=== PATIENT | female | born 1950 | race American Indian/Alaskan Native ===

== ENCOUNTER 2018-10-25 17:06 | Emergency (ER) | payer MEDICARE, MEDICAID ==
[2018-10-25 17:51] VITALS: BP 151/84
[2018-10-25] MEDS ORDERED: Ketorolac 30 MG/ML SDV IM ONE (18:54)
[2018-10-25] MEDS ORDERED: Phenazopyridine 95 MG Tab PO ONE (18:54)
[2018-10-25] MEDS ORDERED: Sulfamethoxazole/Trimethoprim 800-160 MG Tab PO ONE (18:54)
--- NOTE | 2018-10-25 19:00 | EDM.PDOC ---
ED HPI GENERAL MEDICAL PROBLEM - General Chief Complaint: Fever Stated Complaint: fever chills aches Time Seen by Provider: 10/25/18 18:55 Source of Information: Reports: Patient History Limitations: Reports: No Limitations - History of Present Illness INITIAL COMMENTS - FREE TEXT/NARRATIVE: c/o 3 days h/o suprapubic discomfort and exac back pain. not getting better. tried hydro but '0' Generalized Pain Score (Numeric/FACES): 8 - Related Data Allergies Allergy/AdvReac Type Severity Reaction Status Date / Time codeine phosphate Allergy rangel Verified 10/25/18 17:51 [From Tylenol-Codeine #3] stomach tramadol Allergy Hyperactivi Verified 10/25/18 17:51 ty Home Meds: Home Meds Cyclobenzaprine [Flexeril] 10 mg PO BEDTIME PRN 11/14/13 [History] Multivitamin [Multi Vitamin Daily] 1 tab PO DAILY 11/14/13 [History] Omeprazole 20 mg PO DAILY 11/14/13 [History] PHENobarbital 129.6 mg PO BEDTIME 11/14/13 [History] Simvastatin [Zocor] 40 mg PO BEDTIME 11/14/13 [History] Aspirin 325 mg PO DAILY 03/05/15 [History] Acetaminophen/HYDROcodone [Churdan 325-5 MG] 1 tab PO ASDIRECTED PRN 03/02/18 [ History] Albuterol Sulfate [Proair Hfa] 2 inh INH ASDIRECTED PRN 03/02/18 [History] Past Medical History HEENT History: Reports: Impaired Vision Other HEENT History: wear glasses Cardiovascular History: Reports: High Cholesterol Respiratory History: Reports: COPD Gastrointestinal History: Reports: GERD Genitourinary History: Reports: None [employer] History: Reports: Musculoskeletal History: Reports: Osteoarthritis Neurological History: Reports: Seizure Psychiatric History: Reports: None Endocrine/Metabolic History: Reports: None Hematologic History: Reports: None Immunologic History: Reports: None Oncologic (Cancer) History: Reports: None Dermatologic History: Reports: None - Infectious Disease History Infectious Disease History: Reports: Chicken Pox, Measles, Mumps - Past Surgical History Head Surgeries/Procedures: Reports: None Social & Family History - Family History Family Medical History: Noncontributory - Tobacco Use Smoking Status *Q: Current Every Day Smoker Years of Tobacco use: 51 Packs/Tins Daily: 0.5 Second Hand Smoke Exposure: No - Caffeine Use Caffeine Use: Reports: Coffee - Recreational Drug Use Recreational Drug Use: No - Living Situation & Occupation Living situation: Reports: with Family Occupation: Retired ED ROS GENERAL - Review of Systems Review Of Systems: ROS reveals no pertinent complaints other than HPI. ED EXAM, GENERAL - Physical Exam Exam: See Below Exam Limited By: No Limitations General Appearance: Alert, WD/WN, Mild Distress, Other (discomfort) Ears: Hearing Grossly Normal Throat/Mouth: Normal Voice, No Airway Compromise Head: Atraumatic Neck: Non-Tender, Full Range of Motion Respiratory/Chest: No Respiratory Distress Cardiovascular: Regular Rate, Rhythm GI/Abdominal: Soft, Other (suprapubic discomfort) Back Exam: Muscle Spasm, Paraspinal Tenderness, Other (right L2-3-4 without radiculitis, gait limited to discomfort) Neurological: Alert, Oriented, Normal Cognition, No Motor/Sensory Deficits Psychiatric: Flat Affect Skin Exam: Warm, Dry, Normal Color Lymphatic: No Adenopathy Course - Vital Signs Last Recorded V/S: Last Vital Signs Temp 37.7 C 10/25/18 17:46 Pulse 108 H 10/25/18 17:46 Resp 16 10/25/18 17:46 BP 151/84 H 10/25/18 17:46 Pulse Ox 94 L 10/25/18 17:46 - Orders/Labs/Meds Orders: Active Orders 24 hr Category Date Time Status CULTURE URINE [RM] Urgent Lab 10/25/18 17:44 Received Ketorolac [Toradol] Med 10/25/18 18:54 Once 30 mg IM ONETIME ONE Orphenadrine [Norflex] Med 10/25/18 19:00 Ordered 60 mg IM Q12H Phenazopyridine [Urinary Pain Relief] Med 10/25/18 18:54 Once 95 mg PO ONETIME ONE Sulfamethoxazole/Trimethoprim [Septra DS] Med 10/25/18 18:54 Once 1 tab PO ONETIME ONE Labs: Laboratory Tests 10/25/18 Range/Units 17:44 Urine Color Yellow (YELLOW) Urine Appearance Clear (CLEAR) Urine pH 6.5 (5.0-9.0) Ur Specific [place] 1.015 (1.005-1.030) Urine Protein Negative (NEGATIVE) Urine Glucose (UA) Negative (NEGATIVE) Urine Ketones Trace H (NEGATIVE) Urine Occult Blood Trace-intact H (NEGATIVE) Urine Nitrite Negative (NEGATIVE) Urine Bilirubin Negative (NEGATIVE) Urine Urobilinogen 1.0 (0.2-1.0) mg/dL Ur Leukocyte Esterase Small H (NEGATIVE) Urine RBC 0-5 /HPF Urine WBC 0-5 (0-5/HPF) /HPF Ur Epithelial Cells Rare (NOT SEEN) /HPF Urine Bacteria Rare (0-FEW/HPF) /HPF Urinalysis Comment See note - Re-Assessments/Exams Free Text/Narrative Re-Assessment/Exam: 10/25/18 18:58 results discussed with pt. Departure - Departure Time of Disposition: 18:58 Disposition: Home, Self-Care 01 Condition: Good Clinical Impression: Spasm of lumbar paraspinous muscle UTI (urinary tract infection) Qualifiers: Urinary tract infection type: acute cystitis Hematuria presence: with hematuria Qualified Code(s): N30.01 - Acute cystitis with hematuria - Discharge Information Instructions: Urinary Tract Infection, Adult, [id number] Additional Instructions: 1) rest 2) avoid bending lifting straining next 48 hours 3) drink lots of liquids 4) follow up at clinic 5) try ice or heat to sore areas 6) continue with muscle relaxants rx given; bactrim DS bid x 20 pyridium 100mg tid prn x 12 - My Orders Last 24 Hours: My Active Orders 10/25/18 18:54 Ketorolac [Toradol] 30 mg IM ONETIME ONE Phenazopyridine [Urinary Pain Relief] 95 mg PO ONETIME ONE Sulfamethoxazole/Trimethoprim [Septra DS] 1 tab PO ONETIME ONE 10/25/18 19:00 Orphenadrine [Norflex] 60 mg IM Q12H - Assessment/Plan Last 24 Hours: My Active Orders 10/25/18 18:54 Ketorolac [Toradol] 30 mg IM ONETIME ONE Phenazopyridine [Urinary Pain Relief] 95 mg PO ONETIME ONE Sulfamethoxazole/Trimethoprim [Septra DS] 1 tab PO ONETIME ONE 10/25/18 19:00 Orphenadrine [Norflex] 60 mg IM Q12H
== END 2018-10-25 19:10 | disposition home or self-care (01) ==
LOC: DL.ED 17:06
DX: N30.01 Acute cystitis with hematuria (principal); M62.830 Muscle spasm of back; J44.9 Chronic obstructive pulmonary disease, unspecified; E78.00 Pure hypercholesterolemia, unspecified; F17.210 Nicotine dependence, cigarettes, uncomplicated; K21.9 Gastro-esophageal reflux disease without esophagitis; Z79.82 Long term (current) use of aspirin; Z79.899 Other long term (current) drug therapy; Z88.6 Allergy status to analgesic agent; Z88.5 Allergy status to narcotic agent
CPT/HCPCS: 81001; 87086; 87088; 87186; 96372; 99283; A9270; J1885; J2360

== ENCOUNTER 2021-05-24 08:24 | Day surgery (SDC) | payer MEDICARE, MEDICAID ==
[2021-05-24] MEDS ORDERED: Sodium Chloride 0.9% 10 ML Syringe IV ONE (08:25)
[2021-05-24] MEDS ORDERED: Dexamethasone 4 MG/ML SDV IV ONE (08:25)
[2021-05-24] MEDS ORDERED: Midazolam 1 MG/ML 2 ML SDV IV ONE (08:25)
[2021-05-24] MEDS ORDERED: Povidone-Iodine 5% Sterile Ophth Soln 30 ML Bottle EYELF ONE ×2 (08:30→09:41)
[2021-05-24] MEDS ORDERED: Moxifloxacin 0.5% Ophth Soln 3 ML Bottle EYELF ONE (08:30)
[2021-05-24] MEDS ORDERED: Acetaminophen/Codeine 300-30 MG Tab PO PRN (08:30)
[2021-05-24] MEDS ORDERED: Ondansetron 4 MG/2 ML SDV IVPUSH PRN (08:30)
[2021-05-24] MEDS ORDERED: Proparacaine 0.5% Ophth Soln 15 ML Bottle EYELF ONE (08:30)
[2021-05-24] MEDS ORDERED: Phenylephrine 10% Ophth Soln 5 ML Bot EYELF ONE (08:30)
[2021-05-24] MEDS ORDERED: Acetaminophen 325 MG Tab PO PRN (08:30)
[2021-05-24] MEDS ORDERED: Timolol Maleate 0.5% Ophth Soln 5 ML Bottle EYELF ONE (08:30)
[2021-05-24] MEDS ORDERED: Cataract Ophth Solution EYELF ONE (08:30)
[2021-05-24] MEDS ORDERED: Tropicamide 1% Ophth Soln 15 ML Bottle EYELF ONE (08:30)
[2021-05-24] MEDS ORDERED: Tobramycin 0.3% Ophth Drops 5 ML Bottle EYELF SCH (08:30)
[2021-05-24] MEDS ORDERED: Tetracaine HCl/PF 0.5% 4 ML Bottle EYELF ONE (09:41)
[2021-05-24] MEDS ORDERED: Dexamethasone/Neomycin/Polymyxin B Ophth Oint 3.5 GM Tube EYELF ONE (09:42)
[2021-05-24] MEDS ORDERED: Apraclonidine 0.5% Ophth Soln 5 ML Bot EYELF ONE (09:42)
[2021-05-24] MEDS ORDERED: Diclofenac Sodium 0.1% Ophth Soln 5 ML Bottle EYELF ONE (09:42)
[2021-05-24] MEDS ORDERED: Chondroitin Sulfate/Hyaluronate Sodium Ophth Inj 0.75 ML Syringe EYELF ONE (09:43)
[2021-05-24] MEDS ORDERED: Lidocaine 1% 30 ML SDV ONE (09:43)
[2021-05-24] MEDS ORDERED: Vancomycin 500 MG SDV EYELF ONE (09:43)
[2021-05-24] MEDS ORDERED: Balanced Salt Solution Ophth Irrig 500 ML Bottle IOCULAR ONE (09:43)
[2021-05-24] MEDS ORDERED: Chondroitin Sulfate/Hyaluronate Sodium Ophth Inj 0.5 ML Syringe IOCULAR ONE (09:44)
[2021-05-24] MEDS ORDERED: Acetylcholine 20 MG/2 ML Intraocular Inj Kit EYELF ONE (09:44)
[2021-05-24] MEDS ORDERED: Dexamethasone 4 MG/ML SDV IOCULAR ONE (09:47)
[2021-05-24 11:20] VITALS: BP 138/79; PULSE 72
== END 2021-05-24 10:55 | disposition home or self-care (01) ==
LOC: DL.SDS 08:24
PROVIDERS: ATTEND Ophthalmology
DX: E11.39 Type 2 diabetes mellitus with other diabetic ophthalmic complication (principal); E11.36 Type 2 diabetes mellitus with diabetic cataract; H40.1121 Primary open-angle glaucoma, left eye, mild stage; H25.812 Combined forms of age-related cataract, left eye; K21.9 Gastro-esophageal reflux disease without esophagitis; E78.5 Hyperlipidemia, unspecified; F17.210 Nicotine dependence, cigarettes, uncomplicated; E66.9 Obesity, unspecified; J44.9 Chronic obstructive pulmonary disease, unspecified; Z88.8 Allergy status to other drugs, medicaments and biological substances; Z90.49 Acquired absence of other specified parts of digestive tract; Z98.890 Other specified postprocedural states; Z79.899 Other long term (current) drug therapy; Z68.32 Body mass index [BMI] 32.0-32.9, adult; Z88.5 Allergy status to narcotic agent
CPT/HCPCS: 00142; 66991; A9270; C1783; J1100; J2250; J3370; V2632

== ENCOUNTER 2021-05-31 08:08 | Day surgery (SDC) | payer MEDICARE, MEDICAID ==
[~2021-05-31 08:08] MED LIST: Acetaminophen 325 MG Tab PO PRN; Acetaminophen/Codeine 300-30 MG Tab PO PRN; Cataract Ophth Solution EYERT ONE; Moxifloxacin 0.5% Ophth Soln 3 ML Bottle EYERT ONE; Ondansetron 4 MG/2 ML SDV IVPUSH PRN; Phenylephrine 10% Ophth Soln 5 ML Bot EYERT ONE; Povidone-Iodine 5% Sterile Ophth Soln 30 ML Bottle EYERT ONE; Proparacaine 0.5% Ophth Soln 15 ML Bottle EYERT ONE; Timolol Maleate 0.5% Ophth Soln 5 ML Bottle EYERT ONE; Tropicamide 1% Ophth Soln 15 ML Bottle EYERT ONE
[2021-05-31] MEDS ORDERED: Sodium Chloride 0.9% 10 ML Syringe IV ONE (08:09)
[2021-05-31] MEDS ORDERED: Dexamethasone 4 MG/ML SDV IV ONE (08:09)
[2021-05-31] MEDS ORDERED: Midazolam 1 MG/ML 2 ML SDV IV ONE (08:09)
[2021-05-31] MEDS ORDERED: Lidocaine 1% 30 ML SDV ONE (09:07)
[2021-05-31] MEDS ORDERED: Tetracaine HCl/PF 0.5% 4 ML Bottle EYERT ONE (09:07)
[2021-05-31] MEDS ORDERED: Diclofenac Sodium 0.1% Ophth Soln 5 ML Bottle EYERT ONE (09:08)
[2021-05-31] MEDS ORDERED: Apraclonidine 0.5% Ophth Soln 5 ML Bot EYERT ONE (09:08)
[2021-05-31] MEDS ORDERED: Povidone-Iodine 5% Sterile Ophth Soln 30 ML Bottle EYERT ONE (09:08)
[2021-05-31] MEDS ORDERED: Vancomycin 500 MG SDV EYERT ONE (09:09)
[2021-05-31] MEDS ORDERED: Dexamethasone/Neomycin/Polymyxin B Ophth Oint 3.5 GM Tube EYERT ONE (09:09)
[2021-05-31] MEDS ORDERED: Balanced Salt Solution Ophth Irrig 500 ML Bottle IOCULAR ONE (09:09)
[2021-05-31] MEDS ORDERED: Acetylcholine 20 MG/2 ML Intraocular Inj Kit EYERT ONE (09:10)
[2021-05-31] MEDS ORDERED: Chondroitin Sulfate/Hyaluronate Sodium Ophth Inj 0.75 ML Syringe EYERT ONE (09:10)
[2021-05-31] MEDS ORDERED: Chondroitin Sulfate/Hyaluronate Sodium Ophth Inj 0.5 ML Syringe IOCULAR ONE (09:10)
[2021-05-31] MEDS ORDERED: Dexamethasone 4 MG/ML SDV IOCULAR ONE (09:13)
[2021-05-31 10:33] VITALS: BP 106/62; PULSE 76
== END 2021-05-31 10:25 | disposition home or self-care (01) ==
LOC: DL.SDS 08:08
PROVIDERS: ATTEND Ophthalmology
DX: E11.39 Type 2 diabetes mellitus with other diabetic ophthalmic complication (principal); E11.36 Type 2 diabetes mellitus with diabetic cataract; H25.811 Combined forms of age-related cataract, right eye; H40.1111 Primary open-angle glaucoma, right eye, mild stage; J44.9 Chronic obstructive pulmonary disease, unspecified; K21.9 Gastro-esophageal reflux disease without esophagitis; E78.5 Hyperlipidemia, unspecified; F17.210 Nicotine dependence, cigarettes, uncomplicated; Z88.8 Allergy status to other drugs, medicaments and biological substances; Z88.5 Allergy status to narcotic agent; Z98.890 Other specified postprocedural states; Z90.49 Acquired absence of other specified parts of digestive tract; Z79.899 Other long term (current) drug therapy; Z79.84 Long term (current) use of oral hypoglycemic drugs
CPT/HCPCS: 00142; A9270-GY; C1783; J1100; J2250; J3370; V2632

== ENCOUNTER 2023-06-02 20:46 | Emergency (ER) | payer MEDICAID, MEDICARE ==
[2023-06-02] MEDS ORDERED: Sodium Chloride 0.9% 10 ML Syringe FLUSH PRN ×2 (20:55→21:13)
[2023-06-02] MEDS ORDERED: Albuterol/Ipratropium 3.0-0.5 MG/3 ML Neb Soln NEB ONE (21:13)
[2023-06-02] MEDS ORDERED: Acetaminophen 500 MG Tab PO ONE (21:14)
[2023-06-02] MEDS ORDERED: predniSONE 20 MG Tab PO ONE (21:37)
[2023-06-02 21:42] LABS: BASOPHILS PERCENT AUTO 0.1 % (0.0-1.0); EOSINOPHILS PERCENT AUTO 1.5 % (1.0-3.0); HEMATOCRIT 40.7 % (37.0-47.0); HEMOGLOBIN 13.6 g/dL (12.0-16.0); LYMPHOCYTES PERCENT AUTO 23.2 % (20.5-50.1); MEAN CORPUSCULAR HEMOGLOBIN 32.7 pg (27.0-34.0); MEAN CORPUSCULAR HGB CONC 33.4 g/dL (33.0-35.0); MEAN CORPUSCULAR VOLUME 97.8 fL (80-100); MONOCYTES PERCENT AUTO 8.1 % (2-8); NEUTROPHILS PERCENT AUTO 67.1 % (42.2-75.2); PLATELET COUNT,PLT 202 10^3/uL (150-450); RED BLOOD CELL COUNT 4.16 10^6/uL (4.2-5.4); WHITE BLOOD CELL COUNT,WBC 9.8 10^3/uL (5.0-10.0)
[2023-06-02 22:01] LABS: ALBUMIN 3.3 g/dL (3.4-5.0); BILIRUBIN TOTAL 0.2 mg/dL (0.2-1.0); BUN/CREATININE RATIO 20.7 (No establ ref range); CALCIUM 8.6 mg/dL (8.5-10.1); CREATININE 0.92 mg/dL (0.55-1.02); EST CRCL DRUG DOSING (CG) 50.47 mL/min; PROTEIN TOTAL,TP 7.2 g/dL (6.4-8.2)
[2023-06-02 22:08] LABS: A/G RATIO 0.85
[2023-06-02 22:20] LABS: CORONAVIRUS COVID-19 NAA NEGATIVE (NEGATIVE); INFLUENZA A NAA NEGATIVE (NEGATIVE); INFLUENZA B NAA NEGATIVE (NEGATIVE); RESPIRATORY SYNCYTIAL VIR NAA NEGATIVE (NEGATIVE)
[2023-06-02] MEDS ORDERED: Azithromycin 250 MG Tab PO ONE (22:31)
[2023-06-02] MEDS ORDERED: Take Home: Albuterol/Ipratropium 3.0-0.5 MG/3 ML Neb Soln, 5 Neb Pack NEB ONE (22:45)
[2023-06-02 22:53] VITALS: BP 114/55; PULSE 90
== END 2023-06-02 23:06 | disposition home or self-care (01) ==
LOC: DL.ED 20:46
DX: J44.1 Chronic obstructive pulmonary disease with (acute) exacerbation (principal); M62.838 Other muscle spasm; E78.00 Pure hypercholesterolemia, unspecified; K21.9 Gastro-esophageal reflux disease without esophagitis; E11.9 Type 2 diabetes mellitus without complications; F17.210 Nicotine dependence, cigarettes, uncomplicated; Z90.49 Acquired absence of other specified parts of digestive tract; Z79.84 Long term (current) use of oral hypoglycemic drugs; Z79.899 Other long term (current) drug therapy; Z88.5 Allergy status to narcotic agent; Z88.8 Allergy status to other drugs, medicaments and biological substances
CPT/HCPCS: 0241U; 36415; 71046; 80053; 83880; 85025; 93005; 93010; 94640; 99284; 99285; A9270; J7512; J3490; J7620-GY

== ENCOUNTER 2024-10-29 17:18 | Inpatient (IN) | payer MEDICARE ==
[2024-10-29] MEDS: Ondansetron 4 MG/2 ML SDV IVPUSH ONE (17:57)
[2024-10-29 20:20] LABS: BASOPHILS PERCENT AUTO 0.2 % (0.0-1.0); EOSINOPHILS PERCENT AUTO 0.7 % (1.0-3.0); LYMPHOCYTES PERCENT AUTO 16.4 % (20.5-50.1); MONOCYTES PERCENT AUTO 7.2 % (2-8); NEUTROPHILS PERCENT AUTO 75.5 % (42.2-75.2); PLATELET COUNT,PLT 224 10^3/uL (150-450); RED BLOOD CELL COUNT 4.75 10^6/uL (4.2-5.4); WHITE BLOOD CELL COUNT,WBC 15.1 10^3/uL (5.0-10.0)
[2024-10-29] MEDS ORDERED: Ondansetron 4 MG/2 ML SDV IVPUSH PRN (20:42)
[2024-10-29] MEDS ORDERED: Magnesium Hydroxide 400 MG/5 ML Susp 30 ML Cup PO PRN (20:42)
[2024-10-29 20:49] LABS: A/G RATIO 0.9; ALANINE AMINOTRANSFERASE,ALT 23.0 U/L (14-59); ASPARTATE AMNIOTRANSFERASE,AST 16.0 U/L (15-37); BILIRUBIN TOTAL 0.5 mg/dL (0.2-1.0); BLOOD UREA NITROGEN,BUN 14.0 mg/dL (7-18); CARBON DIOXIDE,CO2 28.0 mmol/L (21-32); CHLORIDE,CL 107.0 mmol/L (98-107); CREATININE 1.07 mg/dL (0.55-1.02); EST CRCL DRUG DOSING (CG) 42.76 mL/min; ESTIMATED GFR 55.0 mL/min (>=60); GLUCOSE RANDOM 105.0 mg/dL (70-99); POTASSIUM,K 4.5 mmol/L (3.5-5.1); PROTEIN TOTAL,TP 7.8 g/dL (6.4-8.2); SODIUM,NA 144.0 mmol/L (136-145); T4 FREE 1.0 ng/dL (0.76-1.46); TSH ULTRASENSITIVE 2.05 uIU/mL (0.36-3.74)
[2024-10-29] MEDS: Acetaminophen/HYDROcodone 325-5 MG Tab PO PRN (21:42)
[2024-10-30 06:16] LABS: APPEARANCE,URINE CLOUDY (CLEAR); GLUCOSE,URINE NEGATIVE (NEGATIVE); OCCULT BLOOD,URINE NEGATIVE (NEGATIVE)
[2024-10-30 06:21] LABS: BASOPHILS PERCENT AUTO 0.1 % (0.0-1.0); EOSINOPHILS PERCENT AUTO 2.3 % (1.0-3.0); LYMPHOCYTES PERCENT AUTO 28.2 % (20.5-50.1); MONOCYTES PERCENT AUTO 9.0 % (2-8); NEUTROPHILS PERCENT AUTO 60.4 % (42.2-75.2); PLATELET COUNT,PLT 196 10^3/uL (150-450); RED BLOOD CELL COUNT 4.38 10^6/uL (4.2-5.4); WHITE BLOOD CELL COUNT,WBC 8.1 10^3/uL (5.0-10.0)
[2024-10-30 07:00] LABS: A/G RATIO 1.0; ALANINE AMINOTRANSFERASE,ALT 21.0 U/L (14-59); ASPARTATE AMNIOTRANSFERASE,AST 12.0 U/L (15-37); BILIRUBIN TOTAL 0.5 mg/dL (0.2-1.0); BLOOD UREA NITROGEN,BUN 15.0 mg/dL (7-18); CARBON DIOXIDE,CO2 31.0 mmol/L (21-32); CHLORIDE,CL 108.0 mmol/L (98-107); CREATININE 1.0 mg/dL (0.55-1.02); EST CRCL DRUG DOSING (CG) 45.76 mL/min; GLUCOSE RANDOM 103.0 mg/dL (70-99); POTASSIUM,K 4.5 mmol/L (3.5-5.1); PROTEIN TOTAL,TP 6.8 g/dL (6.4-8.2); SODIUM,NA 146.0 mmol/L (136-145)
[2024-10-30 07:01] LABS: ESTIMATED GFR 60.0 mL/min (>=60)
[2024-10-30 08:46] LABS: EPITHELIAL CELLS,URINE MODERATE /HPF (NOT SEEN)
[2024-10-30] MEDS: Non-Formulary Medication 1 Each (Methocarbamol 750 MG Tablet) PO SCH (14:49)
[2024-10-30] MEDS ORDERED: Non-Formulary Medication 1 Each (Methocarbamol 750 MG Tablet) PO SCH (17:00)
[2024-10-31 06:19] LABS: BASOPHILS PERCENT AUTO 0.1 % (0.0-1.0); EOSINOPHILS PERCENT AUTO 2.8 % (1.0-3.0); LYMPHOCYTES PERCENT AUTO 20.8 % (20.5-50.1); MONOCYTES PERCENT AUTO 9.1 % (2-8); NEUTROPHILS PERCENT AUTO 67.2 % (42.2-75.2); PLATELET COUNT,PLT 155 10^3/uL (150-450); RED BLOOD CELL COUNT 3.96 10^6/uL (4.2-5.4); WHITE BLOOD CELL COUNT,WBC 8.7 10^3/uL (5.0-10.0)
[2024-10-31] MEDS: Calcium Carbonate/Vitamin D3 1250 MG-5 MCG Tab PO SCH (08:50)
[2024-10-31] MEDS: Omeprazole 20 MG Cap.CR PO SCH (09:00)
[2024-10-31] MEDS ORDERED: Tiotropium Bromide 4 GM Inhalation Spray (2.5mcg/1 dose; 10 doses) INH SCH (09:00)
[2024-10-31] MEDS: Cholecalciferol (Vitamin D3) 10 MCG Tab PO SCH (09:01)
[2024-10-31] MEDS: Ketorolac 30 MG/ML SDV IVPUSH ONE (11:28)
[2024-10-31] MEDS ORDERED: Patient's Own Medication 1 Each PO SCH (21:00)
[2024-10-31] MEDS: METHOCARBAMOL PO PRN (21:10)
[2024-11-01] MEDS: Sennosides/Docusate Sodium 50-8.6 MG Tab PO PRN (09:36)
[2024-11-01] MEDS: Tiotropium Bromide 4 GM Inhalation Spray (2.5mcg/1 dose; 10 doses) INH SCH (11:03)
[2024-11-01] MEDS: Lactulose Soln 10 GM/15 ML 30 ML UD Cup PO ONE (11:04)
[2024-11-01] MEDS: Benzocaine/Docusate Sodium 20-283 MG/5 ML Enema RECTAL ONE (11:04)
[2024-11-01] MEDS: oxyCODONE ER 10 MG TAB.ER PO SCH (20:16)
[2024-11-01] MEDS: Sennosides/Docusate Sodium 50-8.6 MG Tab PO SCH (20:17)
[2024-11-02 06:34] LABS: BASOPHILS PERCENT AUTO 0.2 % (0.0-1.0); EOSINOPHILS PERCENT AUTO 3.3 % (1.0-3.0); LYMPHOCYTES PERCENT AUTO 22.1 % (20.5-50.1); MONOCYTES PERCENT AUTO 9.0 % (2-8); NEUTROPHILS PERCENT AUTO 65.4 % (42.2-75.2); PLATELET COUNT,PLT 174 10^3/uL (150-450); RED BLOOD CELL COUNT 4.12 10^6/uL (4.2-5.4); WHITE BLOOD CELL COUNT,WBC 9.8 10^3/uL (5.0-10.0)
[2024-11-02 07:05] LABS: ALANINE AMINOTRANSFERASE,ALT 50.0 U/L (14-59); ASPARTATE AMNIOTRANSFERASE,AST 41.0 U/L (15-37); BILIRUBIN TOTAL 0.7 mg/dL (0.2-1.0); BLOOD UREA NITROGEN,BUN 12.0 mg/dL (7-18); CARBON DIOXIDE,CO2 29.0 mmol/L (21-32); CHLORIDE,CL 106.0 mmol/L (98-107); CREATININE 0.83 mg/dL (0.55-1.02); EST CRCL DRUG DOSING (CG) 55.13 mL/min; GLUCOSE RANDOM 99.0 mg/dL (70-99); POTASSIUM,K 4.5 mmol/L (3.5-5.1); PROTEIN TOTAL,TP 6.8 g/dL (6.4-8.2); SODIUM,NA 142.0 mmol/L (136-145)
[2024-11-02 07:08] LABS: A/G RATIO 0.89; ESTIMATED GFR 75.0 mL/min (>=60)
[2024-11-03] MEDS: Heparin Sodium 5,000 Units/ML Vial SUBCUT SCH (14:46)
[2024-11-04 12:26] LABS: BASOPHILS PERCENT AUTO 0.2 % (0.0-1.0); EOSINOPHILS PERCENT AUTO 3.8 % (1.0-3.0); LYMPHOCYTES PERCENT AUTO 20.7 % (20.5-50.1); MONOCYTES PERCENT AUTO 8.2 % (2-8); NEUTROPHILS PERCENT AUTO 67.1 % (42.2-75.2); PLATELET COUNT,PLT 168 10^3/uL (150-450); RED BLOOD CELL COUNT 4.14 10^6/uL (4.2-5.4); WHITE BLOOD CELL COUNT,WBC 8.5 10^3/uL (5.0-10.0)
[2024-11-04 12:40] LABS: BLOOD UREA NITROGEN,BUN 19.0 mg/dL (7-18); CARBON DIOXIDE,CO2 29.0 mmol/L (21-32); CHLORIDE,CL 108.0 mmol/L (98-107); CREATININE 0.82 mg/dL (0.55-1.02); EST CRCL DRUG DOSING (CG) 55.8 mL/min; ESTIMATED GFR 76.0 mL/min (>=60); GLUCOSE RANDOM 101.0 mg/dL (70-99); POTASSIUM,K 5.1 mmol/L (3.5-5.1); SODIUM,NA 142.0 mmol/L (136-145)
[2024-11-04 15:47] VITALS: BP 119/68; PULSE 81
[2024-11-06] MEDS ORDERED: ALENDRONATE SODIUM 70 MG PO SCH (06:00)
[2024-11-12] MEDS ORDERED: ALENDRONATE SODIUM 70 MG PO SCH (06:00)
== END 2024-11-04 16:47 | disposition swing bed (61) | DRG 536 ==
LOC: DL.ED 17:18 → DL.MS 19:23 → OBSVTOIN 11-01 09:34
PROVIDERS: ADMIT Internal Medicine; ATTEND Internal Medicine
DX: E11.9 Type 2 diabetes mellitus without complications (principal); S32.501A Unspecified fracture of right pubis, initial encounter for closed fracture; N17.9 Acute kidney failure, unspecified; I10 Essential (primary) hypertension; J44.9 Chronic obstructive pulmonary disease, unspecified; K21.9 Gastro-esophageal reflux disease without esophagitis; M19.90 Unspecified osteoarthritis, unspecified site; G40.909 Epilepsy, unspecified, not intractable, without status epilepticus; H54.7 Unspecified visual loss; E78.00 Pure hypercholesterolemia, unspecified; G89.29 Other chronic pain; M51.379 Other intervertebral disc degeneration, lumbosacral region without mention of lumbar back pain or lower extremity pain; M54.9 Dorsalgia, unspecified; E11.65 Type 2 diabetes mellitus with hyperglycemia; E83.52 Hypercalcemia; E11.42 Type 2 diabetes mellitus with diabetic polyneuropathy; E66.812 Obesity, class 2; M54.16 Radiculopathy, lumbar region; Z68.32 Body mass index [BMI] 32.0-32.9, adult; Z88.8 Allergy status to other drugs, medicaments and biological substances; Z72.0 Tobacco use; Z90.49 Acquired absence of other specified parts of digestive tract; Z98.49 Cataract extraction status, unspecified eye; Z79.899 Other long term (current) drug therapy
CPT/HCPCS: 36415 ×3; 72131; 72170; 72192; 80053 ×2; 81001; 82306; 83735 ×3; 84439; 84443; 84484 ×2; 85025 ×3; 94010; 97161; 97165; 99284; A9270 ×31; J1171; J1885; J2405; J7030; 80048; 83036; 94664; 96374; 96375; 96376; 97110-GP; 97530-GO; 97530-GP; 99285-25; G0378; J1644

== ENCOUNTER 2024-11-04 11:35 | Inpatient (IN) | payer MEDICARE, OTHER ==
[2024-11-04] MEDS ORDERED: Magnesium Hydroxide 400 MG/5 ML Susp 30 ML Cup PO PRN (16:16)
[2024-11-04] MEDS: Heparin Sodium 5,000 Units/ML Vial SUBCUT SCH (20:53)
[2024-11-04] MEDS: Sennosides/Docusate Sodium 50-8.6 MG Tab PO SCH (20:54)
[2024-11-04] MEDS: Omeprazole 20 MG Cap.CR PO SCH (20:54)
[2024-11-04] MEDS: METHOCARBAMOL PO PRN (21:30)
[2024-11-05 06:51] LABS: BASOPHILS PERCENT AUTO 0.3 % (0.0-1.0); EOSINOPHILS PERCENT AUTO 4.4 % (1.0-3.0); LYMPHOCYTES PERCENT AUTO 30.6 % (20.5-50.1); MONOCYTES PERCENT AUTO 9.4 % (2-8); NEUTROPHILS PERCENT AUTO 55.3 % (42.2-75.2); PLATELET COUNT,PLT 169 10^3/uL (150-450); RED BLOOD CELL COUNT 3.80 10^6/uL (4.2-5.4); WHITE BLOOD CELL COUNT,WBC 7.8 10^3/uL (5.0-10.0)
[2024-11-05 07:03] LABS: BLOOD UREA NITROGEN,BUN 19 mg/dL (7-18); CARBON DIOXIDE,CO2 29 mmol/L (21-32); CHLORIDE,CL 107 mmol/L (98-107); CREATININE 0.77 mg/dL (0.55-1.02); GLUCOSE RANDOM 89 mg/dL (70-99); POTASSIUM,K 4.5 mmol/L (3.5-5.1); SODIUM,NA 142 mmol/L (136-145)
[2024-11-05 07:09] LABS: ESTIMATED GFR 82 mL/min (>=60)
[2024-11-05] MEDS: Tiotropium Bromide 4 GM Inhalation Spray (2.5mcg/1 dose; 10 doses) INH SCH (07:46)
[2024-11-05] MEDS: Calcium Carbonate/Vitamin D3 1250 MG-5 MCG Tab PO SCH (09:38)
[2024-11-05] MEDS: Cholecalciferol (Vitamin D3) 10 MCG Tab PO SCH (09:38)
[2024-11-06] MEDS: fentaNYL 100 MCG/2 ML SDV IVPUSH ONE ×2 (09:40→20:05)
[2024-11-06] MEDS: fentaNYL 25 MCG/HR Transdermal Patch TRDERM SCH (12:04)
[2024-11-07] MEDS: Ondansetron 4 MG/2 ML SDV IVPUSH PRN (21:44)
[2024-11-10] MEDS: Omeprazole 20 MG Cap.CR PO SCH (17:06)
[2024-11-12] MEDS: Patient's Own Medication 1 Each PO SCH (05:54)
[2024-11-12] MEDS: Furosemide 40 MG/4 ML VIAL IVPUSH ONE (13:46)
[2024-11-14] MEDS ORDERED: Sennosides/Docusate Sodium 50-8.6 MG Tab PO PRN (15:48)
[2024-11-14] MEDS: Heparin Sodium 5,000 Units/ML Vial SUBCUT SCH (20:47)
[2024-11-16] MEDS: Triamcinolone Acetonide 40 MG/ML 1 ML SDV INJECT ONE (15:57)
[2024-11-17 19:35] VITALS: PULSE 63
[2024-11-18 08:49] VITALS: BP 120/56
[2024-11-18] MEDS: Pneumococcal 20-Valent Conjug 0.5 ML Syringe IM ONE (10:32)
== END 2024-11-18 10:43 | disposition home or self-care (01) | DRG 561 ==
LOC: DL.MS 16:19
PROVIDERS: ADMIT Internal Medicine; ATTEND Internal Medicine
PROC: 3E0U33Z Introduction of Anti-inflammatory into Joints, Percutaneous Approach (ICD-10-PCS; principal; 2024-11-16)
DX: S32.501D Unspecified fracture of right pubis, subsequent encounter for fracture with routine healing (principal); S32.401D Unspecified fracture of right acetabulum, subsequent encounter for fracture with routine healing; H54.7 Unspecified visual loss; E78.00 Pure hypercholesterolemia, unspecified; J44.9 Chronic obstructive pulmonary disease, unspecified; Z74.09 Other reduced mobility; K21.9 Gastro-esophageal reflux disease without esophagitis; M54.9 Dorsalgia, unspecified; G89.29 Other chronic pain; E11.9 Type 2 diabetes mellitus without complications; G40.909 Epilepsy, unspecified, not intractable, without status epilepticus; M81.0 Age-related osteoporosis without current pathological fracture; K52.9 Noninfective gastroenteritis and colitis, unspecified; K59.00 Constipation, unspecified; M15.9 Polyosteoarthritis, unspecified; M75.102 Unspecified rotator cuff tear or rupture of left shoulder, not specified as traumatic; M51.17 Intervertebral disc disorders with radiculopathy, lumbosacral region; F17.210 Nicotine dependence, cigarettes, uncomplicated; R51.9 Headache, unspecified; E11.65 Type 2 diabetes mellitus with hyperglycemia; E66.812 Obesity, class 2; Z88.6 Allergy status to analgesic agent; Z79.899 Other long term (current) drug therapy; Z98.49 Cataract extraction status, unspecified eye; Z90.89 Acquired absence of other organs; Z90.49 Acquired absence of other specified parts of digestive tract; Z79.52 Long term (current) use of systemic steroids; Z68.33 Body mass index [BMI] 33.0-33.9, adult; W18.30XD Fall on same level, unspecified, subsequent encounter
CPT/HCPCS: 36415; 80048; 85025; 90677; 94664; 97110-GO; 97110-GP; 97116-GP; 97161-GP; 97165-GO; 97530-GO; 97530-GP; 97535-GO; A9270-GY; J1644; J1938; J2003; J2405; J3010; J3301

== ENCOUNTER 2025-02-08 14:36 | Inpatient (IN) | payer MEDICARE ==
[2025-02-08 15:02] LABS: BASOPHILS PERCENT AUTO 0.1 % (0.0-1.0); EOSINOPHILS PERCENT AUTO 0.1 % (1.0-3.0); LYMPHOCYTES PERCENT AUTO 15.1 % (20.5-50.1); MONOCYTES PERCENT AUTO 3.7 % (2-8); NEUTROPHILS PERCENT AUTO 81.0 % (42.2-75.2); PLATELET COUNT,PLT 197 10^3/uL (150-450); RED BLOOD CELL COUNT 4.62 10^6/uL (4.2-5.4); WHITE BLOOD CELL COUNT,WBC 9.8 10^3/uL (5.0-10.0)
[2025-02-08] MEDS: methylPREDNISolone Sodium Succinate 125 MG/2 ML SDV IVPUSH ONE (15:07)
[2025-02-08 15:26] LABS: B-TYPE NATRIURETIC PEPTIDE,BNP 60 pg/ml (0-100)
[2025-02-08 15:27] LABS: A/G RATIO 0.9; ALANINE AMINOTRANSFERASE,ALT 27 U/L (14-59); ASPARTATE AMNIOTRANSFERASE,AST 12 U/L (15-37); BILIRUBIN TOTAL 0.1 mg/dL (0.2-1.0); BLOOD UREA NITROGEN,BUN 15 mg/dL (7-18); CARBON DIOXIDE,CO2 31 mmol/L (21-32); CHLORIDE,CL 108 mmol/L (98-107); CREATININE 0.75 mg/dL (0.55-1.02); EST CRCL DRUG DOSING (CG) 64.96 mL/min; GLUCOSE RANDOM 158 mg/dL (70-99); POTASSIUM,K 4.4 mmol/L (3.5-5.1); PROTEIN TOTAL,TP 7.6 g/dL (6.4-8.2); SODIUM,NA 146 mmol/L (136-145)
[2025-02-08 15:31] LABS: LACTIC ACID 1.8 mmol/L (0.4-2.0)
[2025-02-08 15:39] LABS: ESTIMATED GFR 84 mL/min (>=60)
[2025-02-08] MEDS ORDERED: Sennosides/Docusate Sodium 50-8.6 MG Tab PO PRN (16:50)
[2025-02-08] MEDS ORDERED: Naloxone HCl 4 MG Spray 2 Pack NAS SCH (17:00)
[2025-02-08] MEDS ORDERED: 50% Dextrose in Water 50 ML Syringe IVPUSH PRN (17:04)
[2025-02-08] MEDS: Ketorolac 30 MG/ML SDV IVPUSH ONE (19:23)
[2025-02-08] MEDS: diphenhydrAMINE 50 MG/ML SDV IVPUSH ONE (19:24)
[2025-02-08] MEDS: Omeprazole 20 MG Cap.CR PO SCH (21:46)
[2025-02-08] MEDS: Heparin Sodium 5,000 Units/ML Vial SUBCUT SCH (21:47)
[2025-02-09] MEDS: methylPREDNISolone Sodium Succinate 40 MG/1 ML SDV IVPUSH SCH (05:16)
[2025-02-09 06:20] LABS: BASOPHILS PERCENT AUTO 0.2 % (0.0-1.0); EOSINOPHILS PERCENT AUTO 0.2 % (1.0-3.0); LYMPHOCYTES PERCENT AUTO 26.7 % (20.5-50.1); MONOCYTES PERCENT AUTO 9.0 % (2-8); NEUTROPHILS PERCENT AUTO 63.9 % (42.2-75.2); PLATELET COUNT,PLT 213 10^3/uL (150-450); RED BLOOD CELL COUNT 4.24 10^6/uL (4.2-5.4); WHITE BLOOD CELL COUNT,WBC 12.9 10^3/uL (5.0-10.0)
[2025-02-09 06:35] LABS: BLOOD UREA NITROGEN,BUN 19.0 mg/dL (7-18); CARBON DIOXIDE,CO2 33.0 mmol/L (21-32); CHLORIDE,CL 109.0 mmol/L (98-107); CREATININE 0.78 mg/dL (0.55-1.02); EST CRCL DRUG DOSING (CG) 62.47 mL/min; GLUCOSE RANDOM 94.0 mg/dL (70-99); POTASSIUM,K 4.4 mmol/L (3.5-5.1); SODIUM,NA 149.0 mmol/L (136-145)
[2025-02-09 06:43] LABS: ESTIMATED GFR 80.0 mL/min (>=60)
[2025-02-09 08:27] LABS: FOLIC ACID 4.0 ng/mL (8.6-58.9)
[2025-02-10 06:38] LABS: PLATELET COUNT,PLT 219 10^3/uL (150-450); RED BLOOD CELL COUNT 4.23 10^6/uL (4.2-5.4); WHITE BLOOD CELL COUNT,WBC 12.3 10^3/uL (5.0-10.0)
[2025-02-10 06:39] LABS: BASOPHILS PERCENT AUTO 0.1 % (0.0-1.0); EOSINOPHILS PERCENT AUTO 0.0 % (1.0-3.0); LYMPHOCYTES PERCENT AUTO 22.1 % (20.5-50.1); MONOCYTES PERCENT AUTO 5.3 % (2-8); NEUTROPHILS PERCENT AUTO 72.5 % (42.2-75.2)
[2025-02-10 06:47] LABS: BLOOD UREA NITROGEN,BUN 15.0 mg/dL (7-18); CARBON DIOXIDE,CO2 31.0 mmol/L (21-32); CHLORIDE,CL 105.0 mmol/L (98-107); CREATININE 0.69 mg/dL (0.55-1.02); EST CRCL DRUG DOSING (CG) 70.61 mL/min; GLUCOSE RANDOM 117.0 mg/dL (70-99); POTASSIUM,K 4.6 mmol/L (3.5-5.1); SODIUM,NA 142.0 mmol/L (136-145)
[2025-02-10 06:53] LABS: ESTIMATED GFR 92.0 mL/min (>=60)
[2025-02-10 06:56] LABS: BAND PERCENT MAN 1 %; LYMPHOCYTES PERCENT MAN 23 % (20-50); SEG NEUTROPHILS PERCENT MAN 71 % (42-75)
[2025-02-10 06:57] LABS: MONOCYTES PERCENT MAN 5 % (2-8)
[2025-02-10] MEDS: Ketorolac 30 MG/ML SDV IVPUSH ONE (11:28)
[2025-02-10] MEDS: diphenhydrAMINE 50 MG/ML SDV IVPUSH ONE (11:29)
[2025-02-10] MEDS ORDERED: 50% Dextrose in Water 50 ML Syringe IVPUSH PRN (12:11)
[2025-02-10] MEDS: Codeine/guaiFENesin 10-100 MG/5 ML Syrup 5 ML Cup PO PRN (14:57)
[2025-02-10] MEDS: Sodium Chloride 0.9% 10 ML Syringe FLUSH PRN (21:47)
[2025-02-11 11:00] VITALS: BP 160/63; PULSE 88
== END 2025-02-11 11:25 | disposition home or self-care (01) | DRG 189 ==
LOC: DL.ED 14:36 → DL.MS 16:17 → DL.ED 16:21 → OBSVTOIN 02-09 15:49
PROVIDERS: ADMIT Internal Medicine; ATTEND Internal Medicine
DX: J44.0 Chronic obstructive pulmonary disease with (acute) lower respiratory infection (principal); J20.9 Acute bronchitis, unspecified; J96.01 Acute respiratory failure with hypoxia; J44.1 Chronic obstructive pulmonary disease with (acute) exacerbation; E53.8 Deficiency of other specified B group vitamins; Z88.5 Allergy status to narcotic agent; K21.9 Gastro-esophageal reflux disease without esophagitis; E78.00 Pure hypercholesterolemia, unspecified; M19.90 Unspecified osteoarthritis, unspecified site; M54.9 Dorsalgia, unspecified; G89.29 Other chronic pain; M81.0 Age-related osteoporosis without current pathological fracture; H54.7 Unspecified visual loss; R56.9 Unspecified convulsions; E11.9 Type 2 diabetes mellitus without complications; F17.200 Nicotine dependence, unspecified, uncomplicated; Z88.8 Allergy status to other drugs, medicaments and biological substances; Z79.899 Other long term (current) drug therapy; Z98.49 Cataract extraction status, unspecified eye; Z90.49 Acquired absence of other specified parts of digestive tract; Z98.890 Other specified postprocedural states
CPT/HCPCS: 36415 ×2; 71046; 80048; 80053; 80184; 82607; 82746; 82947 ×3; 83036; 83605; 83735; 83880; 84145; 84484; 85025 ×2; 85379; 87428; 93005; 93010; 94640 ×3; 96374; 96375; 99285 ×2; A9270 ×15; J0696; J1200; J1644 ×3; J1808; J1815; J1885; J2919 ×3; 96365; 96372; 96376; 99223; 99232; 99233; 99239; G0378; Q0164